=== PATIENT | male | born 1980 | race Caucasian/White ===

== ENCOUNTER 2018-08-15 10:51 | Emergency (ER) | payer OTHER ==
--- NOTE | 2018-08-15 11:14 | EDPHY ---
H & P Time Seen by Provider: 08/15/18 11:00 HPI/ROS: This patient slipped right side of his home and fell striking his left eyebrow verses this sidewalk. He was dazed for approximately 10 sec and sustained a laceration left eyebrow. He reports moderate bleeding that slowed with direct pressure. He has localized head pain near the site of impact. He reports that when he 1st fell he felt slight pain in his right wrist from catching himself with his no longer any wrist pain less than hour after the fall. He is accompanied by a friend who drove him in by private vehicle for evaluation. ROS: Constitutional: No complaints new line HEENT: Noted facial injuries other than the forehead/eyebrow laceration and some periorbital ecchymosis on the left. Neuro: He denies any generalized headache, confusion, focal numbness or tingling. No vision changes. Musculoskeletal: No midline neck or back pain Pulmonary: No chest wall pain GI: No vomiting 7 point review of symptoms is performed and otherwise negative with exception of pertinent positives and negatives listed in HPI and ROS Smoking Status: Never smoked Physical Exam: Physical exam: Vital signs are normal General: Patient is in no acute distress. HEENT: The patient has a 3 cm full-thickness laceration left eyebrow with subcutaneous tissue evident. The orbicularis beena muscle is evident but not injured. No foreign bodies and direct examination. There is mild lateral periorbital ecchymosis as well. Nose atraumatic. Ears: Clear bilaterally with no hemotympanum. Oropharynx: No dental trauma or malocclusion. No intraoral lacerations. Eyes: Pupils are equal and reactive to light. Extraocular motions are intact. Optic fundi: Clear with no papilledema or hemorrhage. Neck: Trachea is midline with no stridor. The patient has no midline neck tenderness and retains a full range of motion without increase in pain. Lungs: Clear to auscultation bilaterally Cardiac: Regular rate and rhythm no murmur gallop or rub. Chest: Nontender. Abdomen: Soft nontender no organomegaly Back: Nontender Extremities: Atraumatic including right wrist-nontender with full range of motion intact Neuro: GCS of 15. Cranial nerves II through XII intact. 3 out of 3 five- minute memory is intact. Cerebellar exam is normal as judged by symmetric rapid hand movements bilaterally. No pronator drift. No sensory or motor deficits are appreciated. Initial differential diagnosis: Concussion without LOC, doubt cerebral contusion or more significant head injury, facial laceration Constitutional: Initial Vital Signs Temperature (C) 37.3 C 08/15/18 11:00 Heart Rate 90 08/15/18 11:00 Respiratory Rate 18 08/15/18 11:00 Blood Pressure 137/82 H 08/15/18 11:00 O2 Sat (%) 94 08/15/18 11:00 O2 Delivery Mode Room Air Allergies/Adverse Reactions: No Known Allergies Allergy (Unverified 08/15/18 10:58) Home Medications: Medication Instructions Recorded NK [No Known Home Meds] 08/15/18 MDM/Departure - MDM Procedures: The wound is 3 cm full-thickness described physical exam. The wound was copiously irrigated with saline. The wound was explored for foreign bodies and none were found. The wound was prepped and draped in the normal sterile fashion. The wound was anesthetized using initially a 50 50 mix of 0.5% plain Marcaine and 1% plain lidocaine -2 mL injected with 27 gauge needle with increase in bleeding. I then injected the wound further with 0.5% Marcaine with epinephrine with good hemostasis and anesthesia. He received 2 mL of Marcaine with epinephrine. The edges were reapproximated using 5 0 Prolene on a P3 needle -9 running sutures with good hemostasis and cosmesis. The patient tolerated the procedure well. There were no complications. ED Course/Re-evaluation: Discussion: Patient speaks Farsi and he is to oncology patient navigator line to obtain history as well as his friend to assist with history determine the at a history consistent with concussion without LOC or red flag findings in facial laceration. No other significant injuries . He is given wound care instructions with plan to return in 7 days for suture removal and given concussion instructions as well. - Depart Disposition: Home, Routine, Self-Care Clinical Impression: Eyebrow laceration Qualifiers: Encounter type: initial encounter Laterality: left Qualified Code(s): S01.112A - Laceration without foreign body of left eyelid and periocular area, initial encounter Minor head injury without loss of consciousness Qualifiers: Encounter type: initial encounter Qualified Code(s): S09.90XA - Unspecified injury of head, initial encounter Condition: Good Instructions: Head Injury (ED), Facial Laceration (ED) Additional Instructions: Diagnoses: 1. Facial laceration 2. Concussion 3. Nasal contusion Plan: Keep the wound clean and dry for the next 2 days. Then clean daily with warm soapy water Tylenol and ibuprofen for pain and swelling as needed Avoid activities that put you at risk for another head injury until 7 days after your current head pain has resolved Ice to sore areas of face 20 min at a time 3 times a day up with the ice behind washcloth or other cloth so that you do not get frostbite to face. Return for suture removal in 7 days. Return sooner if he develops redness, discharge, unbearable headache despite Tylenol or other concerns.
[2018-08-15] MEDS ORDERED: TDAP ADULT 0.5 ML INJ (BOOSTRIX) IM ONE (12:29)
[2018-08-15 12:55] VITALS: BP 135/83
== END 2018-08-15 12:53 | disposition home or self-care (01) ==
LOC: CED 10:51
PROC: 08QPXZZ Repair Left Upper Eyelid, External Approach (ICD-10-PCS; principal; 2018-08-15)
DX: S01.112A Laceration without foreign body of left eyelid and periocular area, initial encounter (principal); S09.90XA Unspecified injury of head, initial encounter; Z23 Encounter for immunization; W01.0XXA Fall on same level from slipping, tripping and stumbling without subsequent striking against object, initial encounter; Y92.009 Unspecified place in unspecified non-institutional (private) residence as the place of occurrence of the external cause; Y99.9 Unspecified external cause status; Y93.9 Activity, unspecified
CPT/HCPCS: 90471-ER; 99283-ER